=== PATIENT | female | born 1975 | race Caucasian/White ===

== ENCOUNTER 2023-08-09 12:36 | Emergency (ER) | payer OTHER, SELFPAY ==
[2023-08-09 12:35] VITALS: BP 169/93; PULSE 74; RESP 15; TEMP 36.7; O2SAT 100; BMI 24.3
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
[2023-08-09 13:01] LABS: Add Manual Diff / Slide Review NO; Basophils Absolute Auto 0 /uL (0-100); Basophils Percent Auto 0.4 % (0-2); Eosinophils Absolute Auto 100 /uL (0-450); Eosinophils Percent Auto 1.6 % (2-4); Hematocrit 43.1 % (36-46); Hemoglobin 14.8 g/dL (12.0-16.0); Lymphocytes Absolute Auto 2400 /uL (1100-4500); Lymphocytes Percent Auto 32.4 % (25-40); Mean Corpuscular HGB Conc 34.4 % (30-36); Mean Corpuscular Hemoglobin 30.4 PG (26-34); Mean Corpuscular Volume 88.6 fL (80-100); Monocytes Absolute Auto 500 /uL (0-900); Monocytes Percent Auto 6.8 % (3-14); Neutrophils Absolute Auto 4400 /uL (1500-7000); Neutrophils Percent Auto 58.8 % (50-75); Platelet Count 234 X10^3/uL (150-400); Red Blood Cell Count 4.86 X10^6/uL (4.0-5.2); Red Cell Distribution Width 12.7 % (11.6-14.8); White Blood Cell Count 7.5 X10^3/uL (4.5-11.0)
[2023-08-09 13:08] LABS: Alanine Aminotransferase 41 IU/L (<35); Albumin 4.6 g/dL (3.5-5.0); Albumin Globulin Ratio 1.5 (1.0-2.8); Alkaline Phosphatase 59 U/L (38-126); Aspartate Aminotransferase 42 IU/L (14-36); BUN Creatinine Ratio 17.6 (6-22); Bilirubin Total 0.6 mg/dL (0.2-1.3); Blood Urea Nitrogen 12 mg/dL (7-17); Calcium 9.1 mg/dL (8.4-10.2); Carbon Dioxide 23 mmol/L (22-32); Chloride 105 mmol/L (98-107); Estimated Glomerular Filt Rate > 60 mL/min (>60); Glucose 119 mg/dL (70-100); HEMOLYSIS < 15 (0-50); Lipase 154 U/L (23-300); Potassium 3.6 mmol/L (3.4-5.1); Sodium 139 mmol/L (137-145); Total Protein 7.6 g/dL (6.3-8.2)
[2023-08-09 13:10] VITALS: BP 151/86; PULSE 71; O2SAT 99
[2023-08-09 13:15] VITALS: PULSE 74; RESP 15; O2SAT 100
[2023-08-09 13:19] LABS: Pregnancy Test Serum,Qual Negative (Negative)
[2023-08-09 13:30] VITALS: BP 146/84; PULSE 70; RESP 18; O2SAT 100
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
[2023-08-09 13:41] VITALS: BP 151/81; PULSE 73; RESP 21; O2SAT 100
[2023-08-09 13:45] VITALS: PULSE 72; RESP 14; O2SAT 100
[2023-08-09] MEDS: IBUPROFEN 400 MG TABLET 800 MG PO (13:57)
[2023-08-09] MEDS: BACITRACIN OINT 0.9 GM PCKT 1 APPLIC TOP (13:58)
== END 2023-08-09 14:20 | disposition home or self-care (01) ==
PROVIDERS: Emergency Provider Emergency Medicine
DX: S00.83XA Contusion of other part of head, initial encounter (principal); S60.511A Abrasion of right hand, initial encounter; V49.49XA Driver injured in collision with other motor vehicles in traffic accident, initial encounter; Y92.410 Unspecified street and highway as the place of occurrence of the external cause
CPT/HCPCS: 36415; 70450; 71045; 80053; 83690; 84703; 85025; 99284

== ENCOUNTER 2023-08-12 12:39 | Emergency (ER) | payer OTHER, SELFPAY ==
[2023-08-12 12:42] VITALS: BP 128/74; PULSE 67; RESP 18; TEMP 37; O2SAT 97; BMI 24.3
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
[2023-08-12] MEDS: LORATADINE 10 MG TABLET PO (13:36)
[2023-08-12] MEDS: TRIAMCINOLONE 0.1% CREAM 15 GM 1 APPLIC TOP (13:37)
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
[2023-08-12 14:00] VITALS: BP 132/64; PULSE 71; RESP 14; O2SAT 99
== END 2023-08-12 14:03 | disposition home or self-care (01) ==
PROVIDERS: Emergency Provider Physician Assistant Medical
DX: L23.9 Allergic contact dermatitis, unspecified cause (principal); S60.511A Abrasion of right hand, initial encounter; V89.2XXA Person injured in unspecified motor-vehicle accident, traffic, initial encounter
CPT/HCPCS: 99283